=== PATIENT | male | born 1955 | race Caucasian/White ===

== ENCOUNTER 2017-09-13 13:30 | Inpatient (IN) | payer MEDICAID ==
[~2017-09-13] VITALS: Ht 185.4 cm; Wt 82.4 kg
[~2017-09-13 13:30] MED LIST: AMLO2.5T2 PO; AMLO5TAB2 PO; AMLO5TAB4 PO; CARV3.1212 PO; CARV6.252 PO; CEPH250S PO; CIPR500T87 PO; DOCU-131 PO; FURO10SO PO; FURO40TA6 PO; HYDR-3240 PO; HYDR-3341 PO; HYDR-3342 PO; ISOS10TA6 PO; ISOS1TAB2 PO; LEVO500T47 PO; LEVO500T8 PO; OXYC-302 PO; OXYC5SOL8 PO; SPIR25TA3 PO; SULF1TAB23 PO; TAMS0.4C2 PO; [UNRECOGNIZED DRUG - OTHER] PO; none per pt
[2017-09-13] MEDS: SODIUM CHLORIDE 0.9% 1,000ML IVBOLUS ONE ×2 (16:00→16:47)
[2017-09-13] MEDS ORDERED: SODIUM CHLORIDE FLUSH 10ML SYR IVF ONE (16:00)
[2017-09-13 16:34] LABS: MEAN CORPUSCULAR HEMOGLOBIN 28.3 pg (27.5-34.5); MEAN CORPUSCULAR VOLUME 85.8 fL (81-97); MEAN PLATELET VOLUME 7.8 fL (7.4-10.4); PLATELET COUNT 368 x10^3/uL (130-400); RED BLOOD COUNT 4.18 x10^6/uL (4.38-5.82); RED CELL DISTRIBUTION WIDTH 14.9 % (9.4-14.8)
[2017-09-13 16:38] LABS: INTERNATIONAL NORMALIZED RATIO 1.02 (0.93-1.1); PROTHROMBIN TIME 10.5 Seconds (9.6-11.5)
[2017-09-13 16:43] LABS: ALANINE AMINOTRANSFERASE 21 U/L (12-78); ALBUMIN 3.2 g/dL (3.4-5.0); ANION GAP 6 mmol/L (5-15); CALCIUM 8.9 mg/dL (8.5-10.1); CHLORIDE 100 mmol/L (98-107); CREATININE 1.52 mg/dL (0.7-1.3)
[2017-09-13 16:45] LABS: ALKALINE PHOSPHATASE 132 U/L (45-117); BILIRUBIN,TOTAL 0.5 mg/dL (0.2-1.0); TOTAL PROTEIN 7.6 g/dL (6.4-8.2)
[2017-09-13] MEDS ORDERED: PIPERACILLIN/TAZO/PMX 3.375GM 50 ML ONE (16:54)
[2017-09-13] MEDS ORDERED: SODIUM CHLORIDE 0.9%, 500ML IVBOLUS ONE (17:00)
[2017-09-13] MEDS ORDERED: PIPERACILLIN/TAZO/PMX 3.375GM 50 ML IV ONE (17:00)
[2017-09-13 17:02] LABS: CULTURE INDICATED? YES; MICROSCOPIC INDICATED
[2017-09-13] MEDS ORDERED: HYDROmorphone 2 MG/ML, 1ML ONE ×2 (17:13→17:15)
[2017-09-13] MEDS ORDERED: HYDROmorphone 2 MG/ML, 1ML IVPush ONE (17:30)
[2017-09-13] MEDS ORDERED: ONDANSETRON 2MG/ML, 2ML IVPush PRN (17:30)
[2017-09-13] MEDS ORDERED: OMNIPAQUE 350 MG/ML, 100ML BOTTLE ONE (17:40)
[2017-09-13 17:50] LABS: MD YES
[2017-09-13 17:55] LABS: BAND#(MANUAL) 2.12 x10^3/uL; BANDS%(MANUAL) 9 % (0-7); BASOS#(MANUAL) 0.24 x10^3/uL (0-0.1); BASOS% (MANUAL) 1 % (0-1); EOS#(MANUAL) 0.47 x10^3/uL (0.0-0.4); EOS% (MANUAL) 2 % (1-7); LYMPH#(MANUAL) 1.41 x10^3/uL (1-3.4); LYMPHS% (MANUAL) 6 % (22-44); METAMYELOCYTES# (MANUAL) 0.47 x10^3/uL (0-0); METAMYELOCYTES% (MANUAL) 2 % (0-1); MONOS#(MANUAL) 2.59 x10^3/uL (0.3-2.7); MONOS% (MANUAL) 11 % (2-9); MYELOCYTES# (MANUAL) 1.18 x10^3/uL (0-0); MYELOCYTES% (MANUAL) 5 % (0-0); PROGRANULOCYTES# (MANUAL) 0.24 x10^3/uL (0-0); PROGRANULOCYTES% (MANUAL) 1 % (0-0); SEG#(MANUAL) 14.81 x10^3/uL (1.8-6.8); SEGS% (MANUAL) 63 % (42-75)
[2017-09-13 17:57] LABS: <PLATELET ESTIMATE> ADEQUATE; <PLT MORPHOLOGY> NORMAL PLT MORPH; ANISOCYTOSIS 1+
[2017-09-13] MEDS ORDERED: LORazepam 0.5MG TABLET PO PRN (19:30)
[2017-09-13] MEDS: DOCUSATE 100 MG CAPSULE PO SCH (22:04)
[2017-09-13] MEDS: LACTOBACILLUS 1GM/ PACKET PO SCH (22:05)
[2017-09-14] MEDS: SODIUM CHLORIDE 0.9% 1,000 ML IV SCH ×2 (00:26→16:43)
[2017-09-14] MEDS: PIPERACILLIN/TAZO/PMX 3.375GM 50 ML IV SCH ×4 (00:26→22:42)
[2017-09-14 02:13] VITALS: BP 144/92
[2017-09-14 06:39] LABS: MEAN CORPUSCULAR HEMOGLOBIN 27.8 pg (27.5-34.5); MEAN CORPUSCULAR HGB CONC 32.4 g/dL (33.2-36.2); MEAN CORPUSCULAR VOLUME 85.9 fL (81-97); MEAN PLATELET VOLUME 7.6 fL (7.4-10.4); PLATELET COUNT 327 x10^3/uL (130-400); RED BLOOD COUNT 4.34 x10^6/uL (4.38-5.82); RED CELL DISTRIBUTION WIDTH 14.8 % (9.4-14.8)
[2017-09-14 06:45] LABS: ANION GAP 8 mmol/L (5-15); CALCIUM 8.5 mg/dL (8.5-10.1); CHLORIDE 105 mmol/L (98-107); CREATININE 1.65 mg/dL (0.7-1.3)
[2017-09-14 07:02] LABS: BASOPHILS # (AUTO) 0.03 x10^3/uL (0-0.1); BASOPHILS % (AUTO) 0 % (0-1); EOSINOPHILS # (AUTO) 0.15 x10^3/uL (0-0.4); EOSINOPHILS % (AUTO) 1 % (1-7); LYMPHOCYTES # (AUTO) 0.88 x10^3/uL (1-3.4); LYMPHOCYTES % (AUTO) 4 % (22-44); MD SCAN; MONOCYTES # (AUTO) 1.83 x10^3/uL (0.2-0.8); MONOCYTES % (AUTO) 9 % (2-9); NEUTROPHILS # (AUTO) 17.01 x10^3/uL (1.8-6.8); NEUTROPHILS % (AUTO) 86 % (42-75)
[2017-09-14 07:59] VITALS: BP 151/90
[2017-09-14] MEDS: DOCUSATE 100 MG CAPSULE PO SCH ×2 (09:00→19:53)
[2017-09-14] MEDS: LACTOBACILLUS 1GM/ PACKET PO SCH ×3 (10:34→19:58)
[2017-09-14 13:30] VITALS: BP 147/78
[2017-09-14 18:44] VITALS: BP 135/70
[2017-09-15 03:07] VITALS: BP 133/76
[2017-09-15] MEDS: PIPERACILLIN/TAZO/PMX 3.375GM 50 ML IV SCH ×2 (04:15→10:23)
[2017-09-15 06:34] VITALS: BP 132/63
[2017-09-15] MEDS: SODIUM CHLORIDE 0.9% 1,000 ML IV SCH (10:14)
[2017-09-15] MEDS: LACTOBACILLUS 1GM/ PACKET PO SCH ×3 (10:22→20:19)
[2017-09-15] MEDS: DOCUSATE 100 MG CAPSULE PO SCH ×2 (10:22→20:19)
[2017-09-15 12:09] VITALS: BP 131/68
[2017-09-15] MEDS: CIPROFLOXACIN 500 MG TABLET PO SCH ×2 (12:45→20:19)
[2017-09-15] MEDS ORDERED: CIPR500T87 PO (15:29)
[2017-09-15 19:29] VITALS: BP 156/67
[2017-09-16 00:53] VITALS: BP 166/81
[2017-09-16 03:14] LABS: MEAN CORPUSCULAR HEMOGLOBIN 27.9 pg (27.5-34.5); MEAN CORPUSCULAR HGB CONC 32.6 g/dL (33.2-36.2); MEAN CORPUSCULAR VOLUME 85.6 fL (81-97); MEAN PLATELET VOLUME 7.4 fL (7.4-10.4); PLATELET COUNT 381 x10^3/uL (130-400); RED BLOOD COUNT 4.12 x10^6/uL (4.38-5.82); RED CELL DISTRIBUTION WIDTH 14.8 % (9.4-14.8)
[2017-09-16 03:29] LABS: ALANINE AMINOTRANSFERASE 20 U/L (12-78); ALBUMIN 2.7 g/dL (3.4-5.0); ANION GAP 7 mmol/L (5-15); CALCIUM 8.6 mg/dL (8.5-10.1); CHLORIDE 107 mmol/L (98-107)
[2017-09-16 03:31] LABS: ALKALINE PHOSPHATASE 111 U/L (45-117); BILIRUBIN,TOTAL 0.2 mg/dL (0.2-1.0); TOTAL PROTEIN 7.1 g/dL (6.4-8.2)
[2017-09-16 03:54] LABS: BASOPHILS # (AUTO) 0.27 x10^3/uL (0-0.1); BASOPHILS % (AUTO) 1 % (0-1); EOSINOPHILS # (AUTO) 0.63 x10^3/uL (0-0.4); EOSINOPHILS % (AUTO) 3 % (1-7); LYMPHOCYTES % (AUTO) 7 % (22-44); MD SCAN; MONOCYTES # (AUTO) 1.42 x10^3/uL (0.2-0.8); MONOCYTES % (AUTO) 8 % (2-9); NEUTROPHILS # (AUTO) 15.42 x10^3/uL (1.8-6.8); NEUTROPHILS % (AUTO) 81 % (42-75)
[2017-09-16 07:50] VITALS: BP 168/96
[2017-09-16] MEDS: LACTOBACILLUS 1GM/ PACKET PO SCH ×3 (08:31→20:09)
[2017-09-16] MEDS: DOCUSATE 100 MG CAPSULE PO SCH ×2 (08:31→20:09)
[2017-09-16] MEDS: CIPROFLOXACIN 500 MG TABLET PO SCH (08:31)
[2017-09-16] MEDS: CIPROFLOXACIN 250 MG TABLET PO SCH ×2 (09:00→20:10)
[2017-09-16 15:16] VITALS: BP 155/81
[2017-09-16 19:22] VITALS: BP 147/76
[2017-09-17 03:10] VITALS: BP 154/82
[2017-09-17 05:12] LABS: MEAN CORPUSCULAR HEMOGLOBIN 27.8 pg (27.5-34.5); MEAN CORPUSCULAR HGB CONC 32.6 g/dL (33.2-36.2); MEAN CORPUSCULAR VOLUME 85.3 fL (81-97); MEAN PLATELET VOLUME 7.8 fL (7.4-10.4); PLATELET COUNT 409 x10^3/uL (130-400); RED BLOOD COUNT 4.32 x10^6/uL (4.38-5.82); RED CELL DISTRIBUTION WIDTH 14.6 % (9.4-14.8)
[2017-09-17 05:18] LABS: CHLORIDE 105 mmol/L (98-107)
[2017-09-17 05:30] LABS: ALANINE AMINOTRANSFERASE 20 U/L (12-78); ALBUMIN 2.9 g/dL (3.4-5.0); ALKALINE PHOSPHATASE 114 U/L (45-117); ANION GAP 9 mmol/L (5-15); BILIRUBIN,TOTAL 0.4 mg/dL (0.2-1.0); CALCIUM 8.7 mg/dL (8.5-10.1); CREATININE 1.57 mg/dL (0.7-1.3); TOTAL PROTEIN 7.3 g/dL (6.4-8.2)
[2017-09-17 05:38] LABS: MD YES
[2017-09-17 05:42] LABS: BAND#(MANUAL) 0.23 x10^3/uL; BANDS%(MANUAL) 1 % (0-7); BASOS#(MANUAL) 0.23 x10^3/uL (0-0.1); BASOS% (MANUAL) 1 % (0-1); EOS#(MANUAL) 1.39 x10^3/uL (0.0-0.4); EOS% (MANUAL) 6 % (1-7); LYMPH#(MANUAL) 1.85 x10^3/uL (1-3.4); LYMPHS% (MANUAL) 8 % (22-44); MONOS#(MANUAL) 1.62 x10^3/uL (0.3-2.7); MONOS% (MANUAL) 7 % (2-9); MYELOCYTES# (MANUAL) 2.08 x10^3/uL (0-0); MYELOCYTES% (MANUAL) 9 % (0-0); SEG#(MANUAL) 15.71 x10^3/uL (1.8-6.8); SEGS% (MANUAL) 68 % (42-75)
[2017-09-17 05:44] LABS: <PLATELET ESTIMATE> ADEQUATE
[2017-09-17 05:45] LABS: <PLT MORPHOLOGY> NORMAL PLT MORPH
[2017-09-17 08:15] VITALS: BP 144/85
[2017-09-17] MEDS: CIPROFLOXACIN 250 MG TABLET PO SCH ×2 (09:05→21:37)
[2017-09-17] MEDS: LACTOBACILLUS 1GM/ PACKET PO SCH ×3 (09:05→21:37)
[2017-09-17] MEDS: DOCUSATE 100 MG CAPSULE PO SCH ×2 (09:05→21:37)
[2017-09-17] MEDS: ACETAMINOPHEN 325 MG TABLET PO PRN ×2 (12:00→21:39)
[2017-09-17 13:37] VITALS: BP 111/62
[2017-09-17 19:16] VITALS: BP_SYST 107; BP_SYST 137; BP_DIAS 58; BP_DIAS 68
[2017-09-18 04:38] VITALS: BP 142/68
[2017-09-18 05:04] LABS: MEAN CORPUSCULAR HEMOGLOBIN 27.9 pg (27.5-34.5); MEAN CORPUSCULAR HGB CONC 32.4 g/dL (33.2-36.2); MEAN CORPUSCULAR VOLUME 86.1 fL (81-97); MEAN PLATELET VOLUME 7.6 fL (7.4-10.4); PLATELET COUNT 362 x10^3/uL (130-400); RED BLOOD COUNT 4.64 x10^6/uL (4.38-5.82); RED CELL DISTRIBUTION WIDTH 14.6 % (9.4-14.8)
[2017-09-18 05:15] LABS: ALBUMIN 3.1 g/dL (3.4-5.0); ANION GAP 8 mmol/L (5-15); CALCIUM 9.2 mg/dL (8.5-10.1); CHLORIDE 105 mmol/L (98-107)
[2017-09-18 05:18] LABS: ALANINE AMINOTRANSFERASE 28 U/L (12-78); ALKALINE PHOSPHATASE 120 U/L (45-117); BILIRUBIN,TOTAL 0.5 mg/dL (0.2-1.0); CREATININE 1.63 mg/dL (0.7-1.3); TOTAL PROTEIN 7.6 g/dL (6.4-8.2)
[2017-09-18 05:39] LABS: MD YES
[2017-09-18 05:41] LABS: BAND#(MANUAL) 1.25 x10^3/uL; BANDS%(MANUAL) 5 % (0-7); EOS#(MANUAL) 0.25 x10^3/uL (0.0-0.4); EOS% (MANUAL) 1 % (1-7); LYMPH#(MANUAL) 4.73 x10^3/uL (1-3.4); LYMPHS% (MANUAL) 19 % (22-44); MONOS#(MANUAL) 1.25 x10^3/uL (0.3-2.7); MONOS% (MANUAL) 5 % (2-9); MYELOCYTES# (MANUAL) 1.25 x10^3/uL (0-0); MYELOCYTES% (MANUAL) 5 % (0-0); SEG#(MANUAL) 16.19 x10^3/uL (1.8-6.8); SEGS% (MANUAL) 65 % (42-75)
[2017-09-18 05:44] LABS: <PLATELET ESTIMATE> ADEQUATE; <PLT MORPHOLOGY> NORMAL PLT MORPH
[2017-09-18 07:10] VITALS: BP 143/88
[2017-09-18] MEDS: SODIUM CHLORIDE 0.9% 1,000 ML IV SCH ×2 (11:21→21:13)
[2017-09-18] MEDS: LACTOBACILLUS 1GM/ PACKET PO SCH ×3 (11:28→20:01)
[2017-09-18] MEDS: DOCUSATE 100 MG CAPSULE PO SCH ×2 (11:28→20:04)
[2017-09-18] MEDS: CIPROFLOXACIN 250 MG TABLET PO SCH (11:28)
[2017-09-18 13:20] VITALS: BP 156/87
[2017-09-18] MEDS: CEFTRIAXONE PMX 1GM/50ML 50 ML IV SCH (13:21)
[2017-09-18] MEDS: ACETAMINOPHEN 325 MG TABLET PO PRN ×2 (13:34→19:02)
[2017-09-18 19:36] VITALS: BP 149/82
[2017-09-19] MEDS: ACETAMINOPHEN 325 MG TABLET PO PRN (00:07)
[2017-09-19] MEDS ORDERED: OXYcodone/APAP 5/325MG TABLET PO PRN (00:30)
[2017-09-19] MEDS: OXYcodone/APAP 5/325MG TABLET PO PRN ×5 (00:58→23:47)
[2017-09-19 01:02] VITALS: BP 146/78
[2017-09-19 04:43] LABS: MEAN CORPUSCULAR HEMOGLOBIN 27.9 pg (27.5-34.5); MEAN CORPUSCULAR HGB CONC 32.4 g/dL (33.2-36.2); MEAN CORPUSCULAR VOLUME 86.1 fL (81-97); MEAN PLATELET VOLUME 7.4 fL (7.4-10.4); PLATELET COUNT 361 x10^3/uL (130-400); RED BLOOD COUNT 4.27 x10^6/uL (4.38-5.82); RED CELL DISTRIBUTION WIDTH 14.8 % (9.4-14.8)
[2017-09-19 04:59] LABS: CHLORIDE 107 mmol/L (98-107)
[2017-09-19 05:06] LABS: ALANINE AMINOTRANSFERASE 26 U/L (12-78); ALBUMIN 2.9 g/dL (3.4-5.0); ALKALINE PHOSPHATASE 117 U/L (45-117); ANION GAP 4 mmol/L (5-15); BILIRUBIN,TOTAL 0.5 mg/dL (0.2-1.0); CALCIUM 8.6 mg/dL (8.5-10.1); CREATININE 1.52 mg/dL (0.7-1.3); TOTAL PROTEIN 7.1 g/dL (6.4-8.2)
[2017-09-19 05:29] LABS: MD YES
[2017-09-19 05:32] LABS: ANISOCYTOSIS 1+; BAND#(MANUAL) 1.42 x10^3/uL; BANDS%(MANUAL) 6 % (0-7); BASOS#(MANUAL) 1.42 x10^3/uL (0-0.1); BASOS% (MANUAL) 6 % (0-1); EOS#(MANUAL) 1.19 x10^3/uL (0.0-0.4); EOS% (MANUAL) 5 % (1-7); LYMPH#(MANUAL) 3.32 x10^3/uL (1-3.4); LYMPHS% (MANUAL) 14 % (22-44); METAMYELOCYTES# (MANUAL) 0.24 x10^3/uL (0-0); METAMYELOCYTES% (MANUAL) 1 % (0-1); MONOS% (MANUAL) 8 % (2-9); SEG#(MANUAL) 14.22 x10^3/uL (1.8-6.8); SEGS% (MANUAL) 60 % (42-75)
[2017-09-19 05:33] LABS: <PLATELET ESTIMATE> ADEQUATE; <PLT MORPHOLOGY> NORMAL PLT MORPH
[2017-09-19 07:08] VITALS: BP 152/90
[2017-09-19] MEDS: SODIUM CHLORIDE 0.9% 1,000 ML IV SCH ×2 (07:16→16:38)
[2017-09-19] MEDS: DOCUSATE 100 MG CAPSULE PO SCH ×2 (07:23→20:30)
[2017-09-19] MEDS: LACTOBACILLUS 1GM/ PACKET PO SCH ×3 (07:24→20:30)
[2017-09-19] MEDS ORDERED: OMNIPAQUE 350 MG/ML, 150 ML BOTTLE ONE (12:39)
[2017-09-19] MEDS: CEFTRIAXONE PMX 1GM/50ML 50 ML IV SCH (12:41)
[2017-09-19 16:26] VITALS: BP 150/87
[2017-09-19 18:46] VITALS: BP 148/72
[2017-09-20 01:46] VITALS: BP 149/76
[2017-09-20 04:59] LABS: CHLORIDE 103 mmol/L (98-107)
[2017-09-20 05:01] LABS: MEAN CORPUSCULAR HEMOGLOBIN 28.1 pg (27.5-34.5); MEAN CORPUSCULAR HGB CONC 32.8 g/dL (33.2-36.2); MEAN CORPUSCULAR VOLUME 85.6 fL (81-97); MEAN PLATELET VOLUME 7.5 fL (7.4-10.4); PLATELET COUNT 353 x10^3/uL (130-400); RED BLOOD COUNT 4.16 x10^6/uL (4.38-5.82); RED CELL DISTRIBUTION WIDTH 15.1 % (9.4-14.8)
[2017-09-20 05:11] LABS: ALANINE AMINOTRANSFERASE 25 U/L (12-78); ALBUMIN 3.1 g/dL (3.4-5.0); ALKALINE PHOSPHATASE 108 U/L (45-117); ANION GAP 4 mmol/L (5-15); BILIRUBIN,TOTAL 0.2 mg/dL (0.2-1.0); CALCIUM 8.4 mg/dL (8.5-10.1); CREATININE 1.76 mg/dL (0.7-1.3); TOTAL PROTEIN 7.1 g/dL (6.4-8.2)
[2017-09-20 05:27] LABS: MD YES
[2017-09-20 05:28] LABS: BAND#(MANUAL) 1.82 x10^3/uL; BANDS%(MANUAL) 9 % (0-7); BASOS#(MANUAL) 0.61 x10^3/uL (0-0.1); BASOS% (MANUAL) 3 % (0-1); LYMPH#(MANUAL) 2.42 x10^3/uL (1-3.4); LYMPHS% (MANUAL) 12 % (22-44); METAMYELOCYTES# (MANUAL) 2.02 x10^3/uL (0-0); METAMYELOCYTES% (MANUAL) 10 % (0-1); MONOS#(MANUAL) 0.61 x10^3/uL (0.3-2.7); MONOS% (MANUAL) 3 % (2-9); MYELOCYTES# (MANUAL) 0.61 x10^3/uL (0-0); MYELOCYTES% (MANUAL) 3 % (0-0); SEG#(MANUAL) 12.12 x10^3/uL (1.8-6.8); SEGS% (MANUAL) 60 % (42-75)
[2017-09-20 05:30] LABS: <PLATELET ESTIMATE> ADEQUATE; ANISOCYTOSIS 1+; LARGE PLATELETS 1+
[2017-09-20 06:44] VITALS: BP 134/65
[2017-09-20] MEDS: OXYcodone/APAP 5/325MG TABLET PO PRN ×2 (08:39→16:50)
[2017-09-20] MEDS: DOCUSATE 100 MG CAPSULE PO SCH ×2 (08:39→21:04)
[2017-09-20] MEDS: LACTOBACILLUS 1GM/ PACKET PO SCH ×3 (08:39→21:04)
[2017-09-20] MEDS ORDERED: SODIUM POLYSTYRENE SULFONATE ORAL SUSP PO ONE (12:00)
[2017-09-20 12:35] VITALS: BP 135/76
[2017-09-20] MEDS: SODIUM CHLORIDE 0.9% 1,000 ML IV SCH ×2 (14:11→21:04)
[2017-09-20 19:08] VITALS: BP 148/79
[2017-09-21 01:58] VITALS: BP 156/74
[2017-09-21] MEDS: OXYcodone/APAP 5/325MG TABLET PO PRN (04:57)
[2017-09-21 05:47] LABS: ANION GAP 8 mmol/L (5-15); CALCIUM 8.7 mg/dL (8.5-10.1); CHLORIDE 107 mmol/L (98-107); CREATININE 1.51 mg/dL (0.7-1.3)
[2017-09-21 07:06] VITALS: BP 150/88
[2017-09-21] MEDS ORDERED: ATROPINE OPHTH SOLN 1%, 2ML BC PRN (07:30)
[2017-09-21] MEDS: LACTOBACILLUS 1GM/ PACKET PO SCH (08:13)
[2017-09-21] MEDS: DOCUSATE 100 MG CAPSULE PO SCH (08:13)
== END 2017-09-21 10:21 | disposition home or self-care (01) | DRG 871 ==
LOC: ED 15:59 → EDIP 17:21 → 3NW 19:38
PROVIDERS: ADMIT Internal Medicine; ATTEND Internal Medicine
PROC: 0T9B70Z Drainage of Bladder with Drainage Device, Via Natural or Artificial Opening (ICD-10-PCS; principal; 2017-09-13)
DX: A41.9 Sepsis, unspecified organism (principal); K55.029 Acute infarction of small intestine, extent unspecified; N17.9 Acute kidney failure, unspecified; I13.0 Hypertensive heart and chronic kidney disease with heart failure and stage 1 through stage 4 chronic kidney disease, or unspecified chronic kidney disease; E87.5 Hyperkalemia; I50.20 Unspecified systolic (congestive) heart failure; N18.3 Chronic kidney disease, stage 3 (moderate); C67.9 Malignant neoplasm of bladder, unspecified; E86.0 Dehydration; N13.30 Unspecified hydronephrosis; N39.0 Urinary tract infection, site not specified; N99.528 Other complication of incontinent external stoma of urinary tract; F15.10 Other stimulant abuse, uncomplicated; B96.1 Klebsiella pneumoniae [K. pneumoniae] as the cause of diseases classified elsewhere; K59.00 Constipation, unspecified; Y83.8 Other surgical procedures as the cause of abnormal reaction of the patient, or of later complication, without mention of misadventure at the time of the procedure; R65.20 Severe sepsis without septic shock; N40.0 Benign prostatic hyperplasia without lower urinary tract symptoms; Z59.0 Homelessness; Z85.51 Personal history of malignant neoplasm of bladder; Z87.891 Personal history of nicotine dependence; Z90.49 Acquired absence of other specified parts of digestive tract; Z90.6 Acquired absence of other parts of urinary tract; Z90.79 Acquired absence of other genital organ(s); Z90.89 Acquired absence of other organs
CPT/HCPCS: 36415; 71010; 74177; 74178; 76770; 80048; 80053; 81001; 82040; 83605; 83735; 85025; 85610; 87040; 87077; 87086; 87186; 93306; 96365; 96375; J0696; J1170; J2543; Q9967; J7030; J7040

== ENCOUNTER 2017-10-08 13:29 | Emergency (ER) | payer MEDICAID ==
[~2017-10-08] VITALS: Ht 185.4 cm; Wt 90.0 kg
[2017-10-08 15:51] LABS: MEAN CORPUSCULAR HEMOGLOBIN 27.6 pg (27.5-34.5); MEAN CORPUSCULAR HGB CONC 32.1 g/dL (33.2-36.2); MEAN CORPUSCULAR VOLUME 86.2 fL (81-97); PLATELET COUNT 261 x10^3/uL (130-400); RED BLOOD COUNT 4.65 x10^6/uL (4.38-5.82); RED CELL DISTRIBUTION WIDTH 16.2 % (9.4-14.8)
[2017-10-08 16:04] LABS: ALBUMIN 3.6 g/dL (3.4-5.0); ANION GAP 4 mmol/L (5-15); CALCIUM 9.4 mg/dL (8.5-10.1); CHLORIDE 105 mmol/L (98-107)
[2017-10-08 16:06] LABS: MD YES
[2017-10-08 16:08] LABS: BAND#(MANUAL) 0.22 x10^3/uL; BANDS%(MANUAL) 1 % (0-7); BASOS#(MANUAL) 0.22 x10^3/uL (0-0.1); BASOS% (MANUAL) 1 % (0-1); EOS#(MANUAL) 0.22 x10^3/uL (0.0-0.4); EOS% (MANUAL) 1 % (1-7); LYMPH#(MANUAL) 1.95 x10^3/uL (1-3.4); LYMPHS% (MANUAL) 9 % (22-44); METAMYELOCYTES# (MANUAL) 0.22 x10^3/uL (0-0); METAMYELOCYTES% (MANUAL) 1 % (0-1); MONOS#(MANUAL) 1.74 x10^3/uL (0.3-2.7); MONOS% (MANUAL) 8 % (2-9); SEG#(MANUAL) 17.14 x10^3/uL (1.8-6.8); SEGS% (MANUAL) 79 % (42-75)
[2017-10-08 16:09] LABS: POLYCHROMASIA 1+
[2017-10-08 16:10] LABS: <PLATELET ESTIMATE> ADEQUATE; <PLT MORPHOLOGY> NORMAL PLT MORPH; TOXIC GRAN 1+
[2017-10-08] MEDS ORDERED: VANCOMYCIN 1,800 MG in SODIUM CHLORIDE 0.9% 250 ML IV ONE (16:30)
[2017-10-08] MEDS ORDERED: VANCOMYCIN PER PHARMACY MC PRN (16:30)
[2017-10-08] MEDS ORDERED: AMPICILLIN/SULBACTAM 3 GM in SODIUM CHLORIDE 0.9% 100 ML IV ONE (16:30)
[2017-10-08 18:17] VITALS: BP 189/110
== END 2017-10-08 18:38 | disposition home or self-care (01) ==
LOC: ED 16:55
DX: L03.115 Cellulitis of right lower limb (principal); I13.0 Hypertensive heart and chronic kidney disease with heart failure and stage 1 through stage 4 chronic kidney disease, or unspecified chronic kidney disease; N18.9 Chronic kidney disease, unspecified; I50.9 Heart failure, unspecified; C67.9 Malignant neoplasm of bladder, unspecified; Z90.49 Acquired absence of other specified parts of digestive tract; N40.0 Benign prostatic hyperplasia without lower urinary tract symptoms
CPT/HCPCS: 36415; 80048; 82040; 83605; 84145; 84550; 85025; 87040; 93971; 96365; 96368; 99285; J0295; J3370; J7050

== ENCOUNTER 2017-11-15 18:17 | Inpatient (IN) | payer MEDICAID ==
[~2017-11-15] VITALS: Ht 185.4 cm; Wt 87.1 kg
[2017-11-15 18:57] LABS: MEAN CORPUSCULAR HEMOGLOBIN 28.2 pg (27.5-34.5); MEAN CORPUSCULAR HGB CONC 33.1 g/dL (33.2-36.2); MEAN CORPUSCULAR VOLUME 85.1 fL (81-97); PLATELET COUNT 326 x10^3/uL (130-400); RED BLOOD COUNT 4.47 x10^6/uL (4.38-5.82); RED CELL DISTRIBUTION WIDTH 15.6 % (9.4-14.8)
[2017-11-15 19:07] LABS: ALANINE AMINOTRANSFERASE 22 U/L (12-78); ALBUMIN 3.9 g/dL (3.4-5.0); ANION GAP 5 mmol/L (5-15); CALCIUM 8.7 mg/dL (8.5-10.1); CHLORIDE 110 mmol/L (98-107); CREATININE 1.71 mg/dL (0.7-1.3)
[2017-11-15 19:10] LABS: ALKALINE PHOSPHATASE 144 U/L (45-117); BILIRUBIN,TOTAL 0.5 mg/dL (0.2-1.0)
[2017-11-15 19:22] LABS: MD YES
[2017-11-15 19:33] LABS: BAND#(MANUAL) 0.62 x10^3/uL; BANDS%(MANUAL) 2 % (0-7); BASOS#(MANUAL) 0.31 x10^3/uL (0-0.1); BASOS% (MANUAL) 1 % (0-1); LYMPH#(MANUAL) 2.49 x10^3/uL (1-3.4); LYMPHS% (MANUAL) 8 % (22-44); MONOS% (MANUAL) 9 % (2-9); MYELOCYTES# (MANUAL) 0.93 x10^3/uL (0-0); MYELOCYTES% (MANUAL) 3 % (0-0); SEG#(MANUAL) 23.95 x10^3/uL (1.8-6.8); SEGS% (MANUAL) 77 % (42-75)
[2017-11-15 19:36] LABS: <PLATELET ESTIMATE> ADEQUATE; <PLT MORPHOLOGY> NORMAL PLT MORPH; ANISOCYTOSIS 1+
[2017-11-15] MEDS ORDERED: ONDANSETRON 2MG/ML, 2ML ONE (19:58)
[2017-11-15] MEDS ORDERED: SODIUM CHLORIDE 0.9% 1,000ML IVBOLUS ONE (20:00)
[2017-11-15] MEDS ORDERED: SODIUM CHLORIDE FLUSH 10ML SYR IVF ONE (20:00)
[2017-11-15] MEDS ORDERED: ONDANSETRON 2MG/ML, 2ML IVPush ONE (20:00)
[2017-11-15 22:05] LABS: CULTURE INDICATED? YES; MICROSCOPIC INDICATED
[2017-11-15] MEDS ORDERED: SODIUM CHLORIDE FLUSH 10ML SYR IVF PRN (22:30)
[2017-11-15] MEDS ORDERED: LEVOFLOXACIN/PMX 500MG/100ML 100 ML ONE (22:57)
[2017-11-15] MEDS ORDERED: VANCOMYCIN PER PHARMACY MC PRN (23:00)
[2017-11-15] MEDS ORDERED: BISACODYL 10 MG SUPP PR PRN (23:00)
[2017-11-15] MEDS ORDERED: POLYETHYLENE GLYCOL 17 GM PACKET PO PRN (23:00)
[2017-11-15] MEDS ORDERED: ACETAMINOPHEN 325 MG TABLET PO PRN (23:00)
[2017-11-15] MEDS ORDERED: ONDANSETRON 2MG/ML, 2ML IVPush PRN (23:00)
[2017-11-15] MEDS: LEVOFLOXACIN/PMX 500MG/100ML 100 ML IV SCH (23:01)
[2017-11-15] MEDS: SODIUM CHLORIDE FLUSH 10ML SYR IVF SCH (23:02)
[2017-11-15] MEDS ORDERED: PHARMACOKINETIC MONITORING MC PRN (23:30)
[2017-11-15] MEDS: HEPARIN 5,000 UNITS/ML, 1ML SQ SCH (23:40)
[2017-11-15 23:43] VITALS: BP_SYST 164; BP_SYST 170; BP_DIAS 100; BP_DIAS 105
[2017-11-16] MEDS ORDERED: VANCOMYCIN 1,800 MG in SODIUM CHLORIDE 0.9% 250 ML IV ONE
[2017-11-16 00:27] VITALS: BP 147/85
[2017-11-16 04:41] LABS: MEAN CORPUSCULAR HEMOGLOBIN 27.8 pg (27.5-34.5); MEAN CORPUSCULAR HGB CONC 32.4 g/dL (33.2-36.2); MEAN CORPUSCULAR VOLUME 85.8 fL (81-97); MEAN PLATELET VOLUME 7.8 fL (7.4-10.4); PLATELET COUNT 277 x10^3/uL (130-400); RED BLOOD COUNT 4.06 x10^6/uL (4.38-5.82); RED CELL DISTRIBUTION WIDTH 16.1 % (9.4-14.8)
[2017-11-16 04:56] LABS: ALANINE AMINOTRANSFERASE 18 U/L (12-78); ALBUMIN 3.1 g/dL (3.4-5.0); ANION GAP 6 mmol/L (5-15); CALCIUM 8.1 mg/dL (8.5-10.1); CHLORIDE 110 mmol/L (98-107)
[2017-11-16 04:59] LABS: ALKALINE PHOSPHATASE 117 U/L (45-117); BILIRUBIN,TOTAL 0.5 mg/dL (0.2-1.0); TOTAL PROTEIN 6.5 g/dL (6.4-8.2)
[2017-11-16 05:49] LABS: MD YES
[2017-11-16 05:51] LABS: BANDS%(MANUAL) 3 % (0-7); BASOS#(MANUAL) 0.27 x10^3/uL (0-0.1); BASOS% (MANUAL) 1 % (0-1); EOS#(MANUAL) 0.27 x10^3/uL (0.0-0.4); EOS% (MANUAL) 1 % (1-7); LYMPH#(MANUAL) 1.34 x10^3/uL (1-3.4); LYMPHS% (MANUAL) 5 % (22-44); METAMYELOCYTES# (MANUAL) 1.07 x10^3/uL (0-0); METAMYELOCYTES% (MANUAL) 4 % (0-1); MONOS% (MANUAL) 9 % (2-9); MYELOCYTES% (MANUAL) 3 % (0-0); SEG#(MANUAL) 19.76 x10^3/uL (1.8-6.8); SEGS% (MANUAL) 74 % (42-75)
[2017-11-16 05:52] LABS: <PLATELET ESTIMATE> ADEQUATE; <PLT MORPHOLOGY> NORMAL PLT MORPH; ANISOCYTOSIS 1+
[2017-11-16 07:12] VITALS: BP 137/72
[2017-11-16] MEDS: SODIUM CHLORIDE FLUSH 10ML SYR IVF SCH ×2 (09:27→20:25)
[2017-11-16] MEDS: SENNA/DOCUSATE TABLET PO SCH (09:27)
[2017-11-16] MEDS: HEPARIN 5,000 UNITS/ML, 1ML SQ SCH ×3 (09:27→22:59)
[2017-11-16 14:15] VITALS: BP 147/82
[2017-11-16 19:08] VITALS: BP 167/90
[2017-11-16] MEDS: LEVOFLOXACIN/PMX 500MG/100ML 100 ML IV SCH (23:02)
[2017-11-17] MEDS ORDERED: VANCOMYCIN 1,600 MG in SODIUM CHLORIDE 0.9% 250 ML IV ONE
[2017-11-17 00:35] VITALS: BP 169/99
[2017-11-17 07:05] VITALS: BP 167/98
[2017-11-17 08:31] LABS: MEAN CORPUSCULAR HEMOGLOBIN 27.7 pg (27.5-34.5); MEAN CORPUSCULAR HGB CONC 32.4 g/dL (33.2-36.2); MEAN CORPUSCULAR VOLUME 85.4 fL (81-97); MEAN PLATELET VOLUME 7.8 fL (7.4-10.4); PLATELET COUNT 283 x10^3/uL (130-400); RED CELL DISTRIBUTION WIDTH 16.1 % (9.4-14.8)
[2017-11-17 08:40] LABS: ANION GAP 6 mmol/L (5-15); CALCIUM 8.3 mg/dL (8.5-10.1); CHLORIDE 108 mmol/L (98-107); CREATININE 1.64 mg/dL (0.7-1.3)
[2017-11-17 08:55] LABS: MD YES
[2017-11-17] MEDS: SODIUM CHLORIDE FLUSH 10ML SYR IVF SCH ×2 (09:00→21:00)
[2017-11-17] MEDS: SENNA/DOCUSATE TABLET PO SCH (10:02)
[2017-11-17] MEDS: CARVEDILOL 3.125 MG TABLET PO SCH ×2 (10:02→17:46)
[2017-11-17] MEDS: AMLODIPINE 5 MG TABLET PO SCH (10:02)
[2017-11-17] MEDS: CEFTRIAXONE PMX 1GM/50ML 50 ML IV SCH (10:02)
[2017-11-17] MEDS: HEPARIN 5,000 UNITS/ML, 1ML SQ SCH ×3 (10:03→21:20)
[2017-11-17 10:40] LABS: <PLATELET ESTIMATE> ADEQUATE; <PLT MORPHOLOGY> NORMAL PLT MORPH; ANISOCYTOSIS 1+; BAND#(MANUAL) 1.09 x10^3/uL; BANDS%(MANUAL) 4 % (0-7); BASOS#(MANUAL) 0.54 x10^3/uL (0-0.1); BASOS% (MANUAL) 2 % (0-1); METAMYELOCYTES# (MANUAL) 3.81 x10^3/uL (0-0); METAMYELOCYTES% (MANUAL) 14 % (0-1); MONOS#(MANUAL) 1.09 x10^3/uL (0.3-2.7); MONOS% (MANUAL) 4 % (2-9); MYELOCYTES# (MANUAL) 1.09 x10^3/uL (0-0); MYELOCYTES% (MANUAL) 4 % (0-0); SEG#(MANUAL) 19.58 x10^3/uL (1.8-6.8); SEGS% (MANUAL) 72 % (42-75)
[2017-11-17 14:04] VITALS: BP 135/71
[2017-11-17 19:27] VITALS: BP 146/83
[2017-11-18 00:56] VITALS: BP 150/86
[2017-11-18 05:38] LABS: MEAN CORPUSCULAR HEMOGLOBIN 28.1 pg (27.5-34.5); MEAN CORPUSCULAR HGB CONC 32.9 g/dL (33.2-36.2); MEAN CORPUSCULAR VOLUME 85.4 fL (81-97); MEAN PLATELET VOLUME 8.2 fL (7.4-10.4); PLATELET COUNT 284 x10^3/uL (130-400); RED BLOOD COUNT 4.56 x10^6/uL (4.38-5.82); RED CELL DISTRIBUTION WIDTH 16.1 % (9.4-14.8)
[2017-11-18 05:44] LABS: CHLORIDE 105 mmol/L (98-107)
[2017-11-18] MEDS: HEPARIN 5,000 UNITS/ML, 1ML SQ SCH ×3 (05:49→22:13)
[2017-11-18] MEDS: CARVEDILOL 3.125 MG TABLET PO SCH ×2 (05:49→17:24)
[2017-11-18 06:01] LABS: ALANINE AMINOTRANSFERASE 18 U/L (12-78); ALBUMIN 3.4 g/dL (3.4-5.0); ALKALINE PHOSPHATASE 112 U/L (45-117); ANION GAP 8 mmol/L (5-15); BILIRUBIN,TOTAL 0.6 mg/dL (0.2-1.0); CALCIUM 8.9 mg/dL (8.5-10.1); CREATININE 1.63 mg/dL (0.7-1.3); TOTAL PROTEIN 7.5 g/dL (6.4-8.2)
[2017-11-18 06:02] LABS: MD YES
[2017-11-18 06:05] LABS: <PLATELET ESTIMATE> ADEQUATE; <PLT MORPHOLOGY> NORMAL PLT MORPH; ANISOCYTOSIS 1+; BAND#(MANUAL) 0.71 x10^3/uL; BANDS%(MANUAL) 3 % (0-7); BASOS#(MANUAL) 0.71 x10^3/uL (0-0.1); BASOS% (MANUAL) 3 % (0-1); EOS#(MANUAL) 0.47 x10^3/uL (0.0-0.4); EOS% (MANUAL) 2 % (1-7); LYMPH#(MANUAL) 1.19 x10^3/uL (1-3.4); LYMPHS% (MANUAL) 5 % (22-44); METAMYELOCYTES# (MANUAL) 0.47 x10^3/uL (0-0); METAMYELOCYTES% (MANUAL) 2 % (0-1); MONOS#(MANUAL) 1.66 x10^3/uL (0.3-2.7); MONOS% (MANUAL) 7 % (2-9); MYELOCYTES# (MANUAL) 2.13 x10^3/uL (0-0); MYELOCYTES% (MANUAL) 9 % (0-0); SEG#(MANUAL) 16.35 x10^3/uL (1.8-6.8); SEGS% (MANUAL) 69 % (42-75)
[2017-11-18 08:02] VITALS: BP 144/87
[2017-11-18] MEDS: SENNA/DOCUSATE TABLET PO SCH (09:00)
[2017-11-18] MEDS: AMLODIPINE 5 MG TABLET PO SCH (09:32)
[2017-11-18] MEDS: CEFTRIAXONE PMX 1GM/50ML 50 ML IV SCH (09:33)
[2017-11-18] MEDS: SODIUM CHLORIDE FLUSH 10ML SYR IVF SCH ×2 (09:33→21:00)
[2017-11-18 14:19] VITALS: BP 137/88
[2017-11-18 19:18] VITALS: BP 138/85
[2017-11-19 02:25] VITALS: BP 156/94
[2017-11-19] MEDS: CARVEDILOL 3.125 MG TABLET PO SCH ×2 (05:26→17:39)
[2017-11-19 07:49] VITALS: BP 134/78
[2017-11-19] MEDS: HEPARIN 5,000 UNITS/ML, 1ML SQ SCH ×3 (08:01→20:11)
[2017-11-19] MEDS: AMLODIPINE 5 MG TABLET PO SCH (08:07)
[2017-11-19] MEDS: SODIUM CHLORIDE FLUSH 10ML SYR IVF SCH ×2 (08:08→19:51)
[2017-11-19] MEDS: SENNA/DOCUSATE TABLET PO SCH (08:08)
[2017-11-19 08:15] LABS: MEAN CORPUSCULAR HEMOGLOBIN 27.9 pg (27.5-34.5); MEAN CORPUSCULAR HGB CONC 32.7 g/dL (33.2-36.2); MEAN CORPUSCULAR VOLUME 85.2 fL (81-97); PLATELET COUNT 312 x10^3/uL (130-400)
[2017-11-19 08:26] LABS: ANION GAP 9 mmol/L (5-15); CALCIUM 8.7 mg/dL (8.5-10.1); CHLORIDE 105 mmol/L (98-107); CREATININE 1.62 mg/dL (0.7-1.3)
[2017-11-19 08:28] LABS: MD YES
[2017-11-19 08:30] LABS: BAND#(MANUAL) 1.02 x10^3/uL; BANDS%(MANUAL) 4 % (0-7); BASOS#(MANUAL) 0.76 x10^3/uL (0-0.1); BASOS% (MANUAL) 3 % (0-1); EOS#(MANUAL) 0.51 x10^3/uL (0.0-0.4); EOS% (MANUAL) 2 % (1-7); LYMPH#(MANUAL) 2.03 x10^3/uL (1-3.4); LYMPHS% (MANUAL) 8 % (22-44); METAMYELOCYTES# (MANUAL) 0.76 x10^3/uL (0-0); METAMYELOCYTES% (MANUAL) 3 % (0-1)
[2017-11-19 08:32] LABS: MONOS#(MANUAL) 2.03 x10^3/uL (0.3-2.7); MONOS% (MANUAL) 8 % (2-9); MYELOCYTES# (MANUAL) 1.27 x10^3/uL (0-0); MYELOCYTES% (MANUAL) 5 % (0-0); SEG#(MANUAL) 17.02 x10^3/uL (1.8-6.8); SEGS% (MANUAL) 67 % (42-75)
[2017-11-19 08:33] LABS: <PLATELET ESTIMATE> ADEQUATE; <PLT MORPHOLOGY> NORMAL PLT MORPH; ANISOCYTOSIS 1+; POLYCHROMASIA 1+
[2017-11-19] MEDS: CEFTRIAXONE PMX 1GM/50ML 50 ML IV SCH (09:51)
[2017-11-19 14:05] VITALS: BP 130/67
[2017-11-19 18:51] VITALS: BP 148/87
[2017-11-20 01:50] VITALS: BP 156/97
[2017-11-20 05:12] LABS: MEAN CORPUSCULAR HEMOGLOBIN 28.2 pg (27.5-34.5); MEAN CORPUSCULAR HGB CONC 33.1 g/dL (33.2-36.2); MEAN CORPUSCULAR VOLUME 85.1 fL (81-97); MEAN PLATELET VOLUME 8.2 fL (7.4-10.4); PLATELET COUNT 329 x10^3/uL (130-400); RED BLOOD COUNT 4.86 x10^6/uL (4.38-5.82); RED CELL DISTRIBUTION WIDTH 15.7 % (9.4-14.8)
[2017-11-20 05:37] LABS: MD YES
[2017-11-20 05:39] LABS: BAND#(MANUAL) 1.64 x10^3/uL; BANDS%(MANUAL) 6 % (0-7); BASOS#(MANUAL) 0.27 x10^3/uL (0-0.1); BASOS% (MANUAL) 1 % (0-1); EOS#(MANUAL) 1.09 x10^3/uL (0.0-0.4); EOS% (MANUAL) 4 % (1-7); LYMPH#(MANUAL) 5.73 x10^3/uL (1-3.4); LYMPHS% (MANUAL) 21 % (22-44); METAMYELOCYTES# (MANUAL) 0.55 x10^3/uL (0-0); METAMYELOCYTES% (MANUAL) 2 % (0-1); MONOS% (MANUAL) 11 % (2-9); MYELOCYTES# (MANUAL) 2.18 x10^3/uL (0-0); MYELOCYTES% (MANUAL) 8 % (0-0); SEG#(MANUAL) 12.83 x10^3/uL (1.8-6.8); SEGS% (MANUAL) 47 % (42-75)
[2017-11-20 05:40] LABS: <PLATELET ESTIMATE> ADEQUATE; <PLT MORPHOLOGY> NORMAL PLT MORPH; ANISOCYTOSIS 1+
[2017-11-20 05:41] LABS: TOXIC GRAN 1+
[2017-11-20] MEDS: CARVEDILOL 3.125 MG TABLET PO SCH ×2 (05:58→18:09)
[2017-11-20 07:42] VITALS: BP 133/87
[2017-11-20] MEDS: CEFTRIAXONE PMX 1GM/50ML 50 ML IV SCH (10:56)
[2017-11-20] MEDS: AMLODIPINE 5 MG TABLET PO SCH (10:56)
[2017-11-20] MEDS: SODIUM CHLORIDE FLUSH 10ML SYR IVF SCH ×2 (10:56→21:00)
[2017-11-20] MEDS: SENNA/DOCUSATE TABLET PO SCH (10:56)
[2017-11-20] MEDS: HEPARIN 5,000 UNITS/ML, 1ML SQ SCH ×3 (10:56→23:00)
[2017-11-20 13:59] VITALS: BP 129/82
[2017-11-20 19:26] VITALS: BP 136/85
[2017-11-21 01:23] VITALS: BP 143/82
[2017-11-21 05:57] LABS: MEAN CORPUSCULAR HEMOGLOBIN 27.9 pg (27.5-34.5); MEAN CORPUSCULAR HGB CONC 32.7 g/dL (33.2-36.2); MEAN CORPUSCULAR VOLUME 85.3 fL (81-97); MEAN PLATELET VOLUME 8.4 fL (7.4-10.4); PLATELET COUNT 311 x10^3/uL (130-400); RED BLOOD COUNT 4.86 x10^6/uL (4.38-5.82); RED CELL DISTRIBUTION WIDTH 16.2 % (9.4-14.8)
[2017-11-21 06:09] LABS: ANION GAP 7 mmol/L (5-15); CALCIUM 9.1 mg/dL (8.5-10.1); CHLORIDE 105 mmol/L (98-107); CREATININE 1.75 mg/dL (0.7-1.3)
[2017-11-21 06:13] LABS: MD YES
[2017-11-21 06:17] LABS: BAND#(MANUAL) 0.52 x10^3/uL; BANDS%(MANUAL) 2 % (0-7); BASOS#(MANUAL) 0.26 x10^3/uL (0-0.1); BASOS% (MANUAL) 1 % (0-1); LYMPH#(MANUAL) 3.12 x10^3/uL (1-3.4); LYMPHS% (MANUAL) 12 % (22-44); METAMYELOCYTES% (MANUAL) 5 % (0-1); MONOS% (MANUAL) 5 % (2-9); MYELOCYTES# (MANUAL) 1.82 x10^3/uL (0-0); MYELOCYTES% (MANUAL) 7 % (0-0); SEG#(MANUAL) 17.68 x10^3/uL (1.8-6.8); SEGS% (MANUAL) 68 % (42-75)
[2017-11-21 06:18] LABS: ANISOCYTOSIS 1+
[2017-11-21 06:19] LABS: <PLATELET ESTIMATE> ADEQUATE; <PLT MORPHOLOGY> NORMAL PLT MORPH
[2017-11-21] MEDS: CARVEDILOL 3.125 MG TABLET PO SCH ×2 (06:20→17:41)
[2017-11-21] MEDS: HEPARIN 5,000 UNITS/ML, 1ML SQ SCH ×3 (07:00→19:52)
[2017-11-21 07:04] VITALS: BP 149/96
[2017-11-21] MEDS: SODIUM CHLORIDE FLUSH 10ML SYR IVF SCH ×2 (09:00→19:52)
[2017-11-21] MEDS: SENNA/DOCUSATE TABLET PO SCH (09:00)
[2017-11-21] MEDS: CEFTRIAXONE PMX 1GM/50ML 50 ML IV SCH (09:36)
[2017-11-21] MEDS: AMLODIPINE 5 MG TABLET PO SCH (09:36)
[2017-11-21 13:16] VITALS: BP 128/75
[2017-11-21 19:40] VITALS: BP 120/65
[2017-11-21] MEDS: CEFDINIR 300 MG CAPSULE PO SCH (19:52)
[2017-11-22 01:24] VITALS: BP 152/88
[2017-11-22] MEDS: CARVEDILOL 3.125 MG TABLET PO SCH (05:31)
[2017-11-22 06:41] VITALS: BP 136/71
[2017-11-22] MEDS: HEPARIN 5,000 UNITS/ML, 1ML SQ SCH (07:00)
[2017-11-22] MEDS: SENNA/DOCUSATE TABLET PO SCH (07:44)
[2017-11-22] MEDS: SODIUM CHLORIDE FLUSH 10ML SYR IVF SCH (09:09)
[2017-11-22] MEDS: AMLODIPINE 5 MG TABLET PO SCH (09:09)
[2017-11-22] MEDS: CEFDINIR 300 MG CAPSULE PO SCH (09:09)
[2017-11-22] MEDS ORDERED: CARV3.1212 PO (10:12)
[2017-11-22] MEDS ORDERED: AMLO5TAB2 PO (10:12)
[2017-11-22] MEDS ORDERED: CEFD300C37 PO (10:12)
== END 2017-11-22 12:02 | disposition home or self-care (01) | DRG 699 ==
LOC: ED 20:32 → EDIP 22:44 → 3NE 23:07 → DCLOUNGE 11-22 11:45
PROVIDERS: ADMIT Family Medicine; ATTEND Family Medicine
DX: T83.518A Infection and inflammatory reaction due to other urinary catheter, initial encounter (principal); I13.0 Hypertensive heart and chronic kidney disease with heart failure and stage 1 through stage 4 chronic kidney disease, or unspecified chronic kidney disease; R78.81 Bacteremia; N30.90 Cystitis, unspecified without hematuria; N18.3 Chronic kidney disease, stage 3 (moderate); I50.22 Chronic systolic (congestive) heart failure; Z90.6 Acquired absence of other parts of urinary tract; Z93.6 Other artificial openings of urinary tract status; Y84.6 Urinary catheterization as the cause of abnormal reaction of the patient, or of later complication, without mention of misadventure at the time of the procedure; Y92.89 Other specified places as the place of occurrence of the external cause; Z85.51 Personal history of malignant neoplasm of bladder; Z87.440 Personal history of urinary (tract) infections; Z82.5 Family history of asthma and other chronic lower respiratory diseases; Z82.49 Family history of ischemic heart disease and other diseases of the circulatory system; Z90.79 Acquired absence of other genital organ(s); D64.9 Anemia, unspecified; N40.0 Benign prostatic hyperplasia without lower urinary tract symptoms; I34.0 Nonrheumatic mitral (valve) insufficiency; Z79.899 Other long term (current) drug therapy; Z59.0 Homelessness; F15.10 Other stimulant abuse, uncomplicated; Z71.51 Drug abuse counseling and surveillance of drug abuser; B95.4 Other streptococcus as the cause of diseases classified elsewhere; B96.89 Other specified bacterial agents as the cause of diseases classified elsewhere; Z90.49 Acquired absence of other specified parts of digestive tract
CPT/HCPCS: 36415; 71046; 74176; 80048; 80053; 81001; 83605; 83880; 84145; 85025; 87040; 87077; 87086; 87147; 87186; 93005; 96361; 96374; J0696; J1956; J2405; J3370; J7030; J7050

== ENCOUNTER 2018-06-15 18:23 | Emergency (ER) | payer MEDICARE, MEDICAID ==
[~2018-06-15] VITALS: Ht 185.4 cm; Wt 84.1 kg
[~2018-06-15 18:23] MED LIST changes: +ALLO100T30 PO; -AMLO5TAB2 PO; +AMLO5TAB7 PO; +CEFD300C37 PO; +NITR100C57 PO; -SPIR25TA3 PO; +SPIR25TA5 PO
[2018-06-15 19:27] LABS: ALBUMIN 3.5 g/dL (3.4-5.0); ANION GAP 10 mmol/L (5-15); CHLORIDE 99 mmol/L (98-107)
[2018-06-15 19:31] LABS: ALANINE AMINOTRANSFERASE 18 U/L (12-78); ALKALINE PHOSPHATASE 100 U/L (45-117); BILIRUBIN,TOTAL 0.6 mg/dL (0.2-1.0); CREATININE 2.05 mg/dL (0.7-1.3); TOTAL PROTEIN 7.5 g/dL (6.4-8.2)
[2018-06-15 19:51] LABS: MEAN CORPUSCULAR HEMOGLOBIN 28.1 pg (27.5-34.5); MEAN CORPUSCULAR HGB CONC 33.2 g/dL (33.2-36.2); MEAN CORPUSCULAR VOLUME 84.4 fL (81-97); MEAN PLATELET VOLUME 8.8 fL (7.4-10.4); PLATELET COUNT 500 x10^3/uL (130-400); RED BLOOD COUNT 3.96 x10^6/uL (4.38-5.82); RED CELL DISTRIBUTION WIDTH 16.3 % (9.4-14.8)
[2018-06-15 19:57] LABS: MD YES
[2018-06-15 19:59] LABS: CULTURE INDICATED? YES; MICROSCOPIC INDICATED
[2018-06-15 20:00] LABS: BAND#(MANUAL) 9.17 x10^3/uL; BANDS%(MANUAL) 11 % (0-7); BASOS% (MANUAL) 3 % (0-1); EOS#(MANUAL) 1.67 x10^3/uL (0.0-0.4); EOS% (MANUAL) 2 % (1-7); LYMPH#(MANUAL) 4.17 x10^3/uL (1-3.4); LYMPHS% (MANUAL) 5 % (22-44); METAMYELOCYTES% (MANUAL) 6 % (0-1); MONOS% (MANUAL) 6 % (2-9); MYELOCYTES# (MANUAL) 4.17 x10^3/uL (0-0); MYELOCYTES% (MANUAL) 5 % (0-0); OTHER CELLS # (MANUAL) 0.83 x10^3/uL (0-0); OTHER CELLS % (MANUAL) 1 % (0-0); PROGRANULOCYTES# (MANUAL) 1.67 x10^3/uL (0-0); PROGRANULOCYTES% (MANUAL) 2 % (0-0); SEG#(MANUAL) 49.21 x10^3/uL (1.8-6.8); SEGS% (MANUAL) 59 % (42-75)
[2018-06-15 20:01] LABS: ANISOCYTOSIS 1+; POLYCHROMASIA 1+
[2018-06-15 20:02] LABS: <PLATELET ESTIMATE> INCREASED; <PLT MORPHOLOGY> NORMAL PLT MORPH
[2018-06-15 20:53] VITALS: BP 144/82
== END 2018-06-15 20:59 | disposition home or self-care (01) ==
LOC: ED 18:58
DX: N30.00 Acute cystitis without hematuria (principal); N18.9 Chronic kidney disease, unspecified; I50.9 Heart failure, unspecified; I13.0 Hypertensive heart and chronic kidney disease with heart failure and stage 1 through stage 4 chronic kidney disease, or unspecified chronic kidney disease; Z90.49 Acquired absence of other specified parts of digestive tract; Z85.51 Personal history of malignant neoplasm of bladder
CPT/HCPCS: 36415; 80053; 81001; 85025; 87077; 87086; 87186; 99284

== ENCOUNTER 2018-10-16 08:42 | Emergency (ER) | payer MEDICARE, MEDICAID ==
[~2018-10-16] VITALS: Ht 185.4 cm; Wt 88.0 kg
[~2018-10-16 08:42] MED LIST changes: +AMLO-150 PO; -AMLO5TAB7 PO
[2018-10-16 10:35] LABS: ALANINE AMINOTRANSFERASE 17 U/L (12-78); ALBUMIN 3.6 g/dL (3.4-5.0); ANION GAP 6 mmol/L (5-15); CALCIUM 8.9 mg/dL (8.5-10.1); CHLORIDE 106 mmol/L (98-107); CREATININE 2.14 mg/dL (0.7-1.3)
[2018-10-16 10:39] LABS: ALKALINE PHOSPHATASE 130 U/L (45-117); BILIRUBIN,TOTAL 0.6 mg/dL (0.2-1.0); TOTAL PROTEIN 7.5 g/dL (6.4-8.2)
[2018-10-16 10:46] LABS: MD YES; MEAN CORPUSCULAR HEMOGLOBIN 26.6 pg (27.5-34.5); MEAN CORPUSCULAR HGB CONC 32.3 g/dL (33.2-36.2); MEAN CORPUSCULAR VOLUME 82.4 fL (81-97); MEAN PLATELET VOLUME 8.3 fL (7.4-10.4); PLATELET COUNT 554 x10^3/uL (130-400); RED BLOOD COUNT 3.51 x10^6/uL (4.38-5.82); RED CELL DISTRIBUTION WIDTH 18.4 % (9.4-14.8)
[2018-10-16 10:51] LABS: HEMOGRAM NOTE RECHECKED
[2018-10-16 10:53] LABS: BAND#(MANUAL) 9.34 x10^3/uL; BANDS%(MANUAL) 10 % (0-7); LYMPH#(MANUAL) 4.67 x10^3/uL (1-3.4); LYMPHS% (MANUAL) 5 % (22-44); METAMYELOCYTES# (MANUAL) 4.67 x10^3/uL (0-0); METAMYELOCYTES% (MANUAL) 5 % (0-1); MONOS#(MANUAL) 4.67 x10^3/uL (0.3-2.7); MONOS% (MANUAL) 5 % (2-9); MYELOCYTES% (MANUAL) 6 % (0-0); PROGRANULOCYTES# (MANUAL) 0.93 x10^3/uL (0-0); PROGRANULOCYTES% (MANUAL) 1 % (0-0); SEG#(MANUAL) 63.51 x10^3/uL (1.8-6.8); SEGS% (MANUAL) 68 % (42-75)
[2018-10-16 10:54] LABS: <PLATELET ESTIMATE> INCREASED; <PLT MORPHOLOGY> NORMAL PLT MORPH; ANISOCYTOSIS 1+; POLYCHROMASIA 1+
--- NOTE | 2018-10-16 11:19 | NUR ---
PT A&OX4, C/O BILAT CALF PAIN & SWELLING. STATES HIS BELONGINGS WERE STOLEN, INCLUDING UROSTOMY SUPPLIES. UROSTOMY BAG FULL; URINAL PROVIDED TO PT FOR DRAINING. DENIES DYSPNEA, CHEEKS FLUSHED, MISSING SOME TEETH - SPEECH OTHERWISE CLEAR, DENIES OTHER PAIN.
[2018-10-16 11:37] VITALS: BP 144/80
== END 2018-10-16 12:48 | disposition home or self-care (01) ==
LOC: ED 09:40
DX: L03.116 Cellulitis of left lower limb (principal); L03.115 Cellulitis of right lower limb; I13.0 Hypertensive heart and chronic kidney disease with heart failure and stage 1 through stage 4 chronic kidney disease, or unspecified chronic kidney disease; N18.9 Chronic kidney disease, unspecified; F15.10 Other stimulant abuse, uncomplicated
CPT/HCPCS: 36415; 80053; 83880; 85025; 99283

== ENCOUNTER 2018-10-23 14:10 | Emergency (ER) | payer MEDICARE, MEDICAID ==
[~2018-10-23] VITALS: Ht 182.9 cm; Wt 87.0 kg
[2018-10-23] MEDS ORDERED: CEPH-368 PO (14:38)
[2018-10-23 15:10] LABS: ALBUMIN 3.5 g/dL (3.4-5.0); ANION GAP 7 mmol/L (5-15); CALCIUM 9.1 mg/dL (8.5-10.1); CHLORIDE 109 mmol/L (98-107); CREATININE 2.17 mg/dL (0.7-1.3)
--- NOTE | 2018-10-23 15:33 | NUR ---
16FR [facility] CATH INSERTED THROUGH UROTOMY STOMA W/O DIFFICULT AND PT DENIED ANY PAIN. BALLOON INFLATED WITH 6ML STERILE WATER. RAISED, HARD AREA SURROUNDING STOMA IMEDIATELY DEFLATED THE URINE FLOWED OUT. DR. SRIVASTAVA AT BEDSIDE, ORDER REC'D TO LEAVE CATH IN PLACE FOR NOW. UROLOGY TO BE CONSULTED ONCE CT IS RESULTED.
--- NOTE | 2018-10-23 15:35 | NUR ---
LATE ENTRY. PT TO ROOM FROM TRIAGE. PT W/ HX OF BLADDER CA, UROSTOMY IN PLACE. PT RPTS HE IS HOMELESS AND HIS UROSTOMY SUPPLIES WERE STOLLEN. STATES THAT HE HAS BEEN UNABLE TO CHANGE HIS UROSTOMY BAG FOR "A LONG TIME" PT STATES HE HAS HAD NO ACCESS TO A SHOWER OR CLEAN WATER. PT IS VERY UNKEPT. PT OOB AND AMBULATED TO SHOWER ROOM. HE COMPLETED A SHOWER W/O DIFFICULTY AND RTD TO ROOM W/O INCIDENT. OSTOMY/WOUND CARE NURSEARELI AT BEDSIDE. NEW UROSTOMY SUPPLIES REC'D AND VERBAL INST TO THIS NURSE FOR CARE.
[2018-10-23 15:56] LABS: MEAN CORPUSCULAR VOLUME 83.6 fL (81-97); MEAN PLATELET VOLUME 8.4 fL (7.4-10.4); PLATELET COUNT 672 x10^3/uL (130-400); RED BLOOD COUNT 3.66 x10^6/uL (4.38-5.82); RED CELL DISTRIBUTION WIDTH 18.3 % (9.4-14.8)
[2018-10-23 15:58] LABS: MEAN CORPUSCULAR HEMOGLOBIN 27.3 pg (27.5-34.5); MEAN CORPUSCULAR HGB CONC 32.6 g/dL (33.2-36.2)
[2018-10-23 15:59] LABS: MD YES
[2018-10-23 16:03] LABS: ANISOCYTOSIS 1+; BANDS%(MANUAL) 8 % (0-7); EOS#(MANUAL) 1.11 x10^3/uL (0.0-0.4); EOS% (MANUAL) 1 % (1-7); LYMPH#(MANUAL) 4.45 x10^3/uL (1-3.4); LYMPHS% (MANUAL) 4 % (22-44); METAMYELOCYTES# (MANUAL) 6.67 x10^3/uL (0-0); METAMYELOCYTES% (MANUAL) 6 % (0-1); MONOS#(MANUAL) 6.67 x10^3/uL (0.3-2.7); MONOS% (MANUAL) 6 % (2-9); POLYCHROMASIA 1+; PROGRANULOCYTES# (MANUAL) 4.45 x10^3/uL (0-0); PROGRANULOCYTES% (MANUAL) 4 % (0-0); SEG#(MANUAL) 68.94 x10^3/uL (1.8-6.8); SEGS% (MANUAL) 62 % (42-75)
[2018-10-23 16:04] VITALS: BP 132/78
[2018-10-23 16:04] LABS: <PLATELET ESTIMATE> INCREASED; HEMOGRAM NOTE RECHECKED; LARGE PLATELETS 1+
[2018-10-23 16:05] LABS: BASOS#(MANUAL) 3.34 x10^3/uL (0-0.1); BASOS% (MANUAL) 3 % (0-1); MYELOCYTES# (MANUAL) 6.67 x10^3/uL (0-0); MYELOCYTES% (MANUAL) 6 % (0-0)
[2018-10-23 16:12] LABS: MICROSCOPIC INDICATED
[2018-10-23 16:24] LABS: CULTURE INDICATED? NO
--- NOTE | 2018-10-23 16:30 | NUR ---
PAGED DR GOODRICH FOR DR SRIVASTAVA.
--- NOTE | 2018-10-23 18:00 | NUR ---
Patient/Caregiver given discharge instructions and they have confirmed that they understand the instructions. Patient ambulatory with steady gait.
== END 2018-10-23 18:01 | disposition home or self-care (01) ==
LOC: ED 17:21
DX: R10.31 Right lower quadrant pain (principal); D72.820 Lymphocytosis (symptomatic); D63.0 Anemia in neoplastic disease; I13.0 Hypertensive heart and chronic kidney disease with heart failure and stage 1 through stage 4 chronic kidney disease, or unspecified chronic kidney disease; N18.9 Chronic kidney disease, unspecified; I50.9 Heart failure, unspecified; Z85.51 Personal history of malignant neoplasm of bladder; Z90.49 Acquired absence of other specified parts of digestive tract; Z90.89 Acquired absence of other organs; Z87.891 Personal history of nicotine dependence
CPT/HCPCS: 36415; 51702; 74176; 80048; 81001; 82040; 85025; 99284